=== PATIENT | female | born 2000 | race Caucasian/White ===

== ENCOUNTER 2022-10-06 09:50 | Emergency (ER) | payer OTHER ==
[~2022-10-06] VITALS: Ht 165.1 cm; Wt 68.2 kg
[2022-10-06] MEDS ORDERED: HYDROCODONE/ACETAMINOPHEN 5-325 MG TABLET PO ONE (10:45)
[2022-10-06] MEDS ORDERED: CYCL-448 PO (12:34)
[2022-10-06] MEDS ORDERED: IBUP-1492 PO (12:34)
[2022-10-06 12:40] VITALS: BP 127/79
== END 2022-10-06 12:44 | disposition home or self-care (01) ==
LOC: EMS 09:53
DX: S09.90XA Unspecified injury of head, initial encounter (principal); M54.2 Cervicalgia; Z90.49 Acquired absence of other specified parts of digestive tract; W00.0XXA Fall on same level due to ice and snow, initial encounter; Y93.89 Activity, other specified; Y92.89 Other specified places as the place of occurrence of the external cause; Y99.8 Other external cause status
CPT/HCPCS: 70450; 72125; 99284